=== PATIENT | female | born 1960 | race Caucasian/White ===

== ENCOUNTER → 2017-10-28 | Outpatient (CLI) | payer OTHER ==
--- NOTE | 2017-10-28 17:18 | REP ---
LEFT FOOT COMPLETE: 10/28/2017. Clinical history: Left foot pain dorsal lateral aspect. Blunt trauma with object dropped on the foot earlier today. Findings: No prior study. The MTP and IP joints are intact. There is no subluxation, dislocation or fracture of the toes. Metatarsals are without fracture or focal lesion. Soft tissue swelling dorsal lateral aspect of the foot. Tarsal bones and their articulations are grossly intact. Subtalar joints intact. Talonavicular and calcaneocuboid joints normal. Minimal degenerative changes dorsal aspect of the talonavicular joint, typical for age. Small plantar calcaneal spur. No Achilles insertional spur. No other finding. Impression: 1. There is minor degenerative changes in the foot and a tiny heel spur. No acute fracture, avulsion, subluxation, or dislocation. 2. Minor soft tissue swelling. Signed by Bryan Garrison MD 10/28/2017 07:46 P
== END ==
LOC: M ADAMS 14:52
PROVIDERS: ATTEND Physician Assistant Medical
DX: S90.32XA Contusion of left foot, initial encounter (principal); W18.30XA Fall on same level, unspecified, initial encounter; Y92.009 Unspecified place in unspecified non-institutional (private) residence as the place of occurrence of the external cause

== ENCOUNTER 2017-12-02 09:20 | Day surgery (SDC) | payer OTHER ==
[2017-12-02] MEDS: NS 1,000 ML IV (09:00)
[2017-12-02] MEDS ORDERED: PROPOFOL 200 MG/20 ML VIAL As Ordered ×2 (10:57→11:07)
[2017-12-02] MEDS ORDERED: LIDOCAINE 2% INJ 100 MG/5 ML SDV (FOR ANES.) As Ordered (10:57)
== END 2017-12-02 11:40 | disposition home or self-care (01) ==
LOC: M OPP 09:20
DX: Z12.11 Encounter for screening for malignant neoplasm of colon (principal); K64.0 First degree hemorrhoids; I10 Essential (primary) hypertension; F17.210 Nicotine dependence, cigarettes, uncomplicated; Z88.0 Allergy status to penicillin; Z79.82 Long term (current) use of aspirin; Z79.899 Other long term (current) drug therapy; Z80.3 Family history of malignant neoplasm of breast
CPT/HCPCS: 45378

== ENCOUNTER → 2019-09-28 | Outpatient (REF) | payer OTHER ==
[~2019-09-28] MED LIST: ASPI81TA26 PO; BENI40TA28 PO
[2019-09-28 17:25] LABS: BACTERIA, URINE AUTO 1+ (NEGATIVE); RBC, URINE AUTO 0 /HPF (0-3); SQUAMOUS EPITHELIAL CELL UR AU 0 /HPF (0-6); WBC, URINE AUTO 1 /HPF (0-3)
== END ==
LOC: M LAB REF 16:48
PROVIDERS: ATTEND Internal Medicine
DX: R31.9 Hematuria, unspecified (principal)

== ENCOUNTER → 2020-11-03 | Outpatient (REF) | payer OTHER | LOC: M LAB REF 18:40 | PROVIDERS: ATTEND Physician Assistant | DX: Z20.828 Contact with and (suspected) exposure to other viral communicable diseases (principal) ==

== ENCOUNTER → 2021-03-06 | Outpatient (REF) | payer OTHER | LOC: M LAB REF 11:34 | PROVIDERS: ATTEND Internal Medicine | DX: Z01.89 Encounter for other specified special examinations (principal) ==

== ENCOUNTER → 2021-11-01 | Outpatient (CLI) | payer OTHER ==
--- NOTE | 2021-11-01 09:12 | REP ---
INDICATION: SCREENING MAMMO. COMPARISON: Multiple prior screening examinations, the most recent, 10/08/2020 TECHNIQUE: Digital screening (2D) mammography was performed bilaterally in the CC and MLO projections. Additionally, breast tomosynthesis (3D mammography) was performed bilaterally in the CC and MLO projections. FINDINGS: By history, the patient has no complaints of a palpable breast abnormality or other significant breast complaints. The [place] volumetric breast density pattern is b, there are scattered areas of fibroglandular density. In the anterior 3rd of the left breast, medial to and above the nipple, in the upper inner quadrant, approximately 2 cm from the nipple, at the 9 to 10 o'clock position, there is an isodense focal asymmetry measuring 6 mm in diameter. The right breast has a stable appearance. IMPRESSION: BIRADS/ACR : Category 0: Incomplete, need additional imaging evaluation. This patient's Tyrer-zick lifetime breast cancer risk assessment score is 7.1%. This mammogram was interpreted with the aid of an FDA-approved computer-aided detection system. The patient states she had a clinical breast exam in September 2021. The patient letter being requested is M0. RECOMMENDATION: 2D and 3D spot compression images of the left breast in the CC and MLO orientations, and left breast ultrasound. <Electronically signed by Holger Garcia > 11/01/21 [id number]
== END ==
LOC: M WHC 07:41
PROVIDERS: ATTEND Internal Medicine
DX: Z12.31 Encounter for screening mammogram for malignant neoplasm of breast (principal); R92.8 Other abnormal and inconclusive findings on diagnostic imaging of breast

== ENCOUNTER → 2021-11-19 | Outpatient (CLI) | payer OTHER ==
[~2021-11-19] MED LIST changes: +ATOR1TAB19 PO
== END ==
LOC: M WHC 07:51
PROVIDERS: ATTEND Internal Medicine
DX: R92.2 Inconclusive mammogram (principal); N63.22 Unspecified lump in the left breast, upper inner quadrant
CPT/HCPCS: 76642; 77065; G0279

== ENCOUNTER → 2021-12-26 | Outpatient (CLI) | payer OTHER ==
[~2021-12-26] MED LIST changes: +**SFHN** LIDOCAINE 1% MDV 20ML VIAL ONE; +**SFHN** SODIUM BICARBONATE 8.4% 10MEQ 10ML VIAL ONE
[2021-12-26 15:06] VITALS: BP 158/82
== END ==
LOC: M WHCPRO 12:17
PROVIDERS: ATTEND Internal Medicine
DX: N60.32 Fibrosclerosis of left breast (principal)

== ENCOUNTER → 2022-11-03 | Outpatient (CLI) | payer OTHER ==
[~2022-11-03] MED LIST changes: -**SFHN** LIDOCAINE 1% MDV 20ML VIAL ONE; -**SFHN** SODIUM BICARBONATE 8.4% 10MEQ 10ML VIAL ONE; -BENI40TA28 PO; +OLME-2 PO
== END ==
LOC: M WHC 08:57
PROVIDERS: ATTEND Internal Medicine
DX: Z12.31 Encounter for screening mammogram for malignant neoplasm of breast (principal)

== ENCOUNTER → 2023-12-14 | Outpatient (CLI) | payer OTHER | LOC: M WHC 09:33 | PROVIDERS: ATTEND Internal Medicine | DX: Z12.31 Encounter for screening mammogram for malignant neoplasm of breast (principal) ==

== ENCOUNTER → 2024-03-23 | Outpatient (REF) | payer OTHER ==
[2024-03-24 17:42] LABS: HEPATITIS B SURFACE ANTIGEN NEGATIVE (NEGATIVE)
[2024-03-24 18:02] LABS: HEPATITIS B CORE ANTIBODY IGM NEGATIVE (NEGATIVE)
== END ==
LOC: M LAB REF 16:36
PROVIDERS: ATTEND Internal Medicine
DX: Z11.59 Encounter for screening for other viral diseases (principal)

== ENCOUNTER → 2024-03-30 | Outpatient (CLI) | payer OTHER | LOC: M PLAIMG 08:36 → M PLALAB 08:36 | PROVIDERS: ATTEND Internal Medicine | DX: M54.2 Cervicalgia (principal) ==

== ENCOUNTER → 2024-12-27 | Outpatient (CLI) | payer OTHER | LOC: M WHC 08:37 | PROVIDERS: ATTEND Internal Medicine | DX: Z12.31 Encounter for screening mammogram for malignant neoplasm of breast (principal) ==